=== PATIENT | female | born 1980 | race Caucasian/White ===

== ENCOUNTER 2017-11-02 23:54 | Emergency (ER) | payer OTHER ==
[2017-11-03 00:23] LABS: ADD MAN DIFF? NO
[2017-11-03 00:24] LABS: BASOPHILS % 0.2 % (0.0-2.0); EOSINOPHILS # 0.2 10^3/ul (0.0-0.5); EOSINOPHILS % 1.1 % (0.0-7.0); HEMATOCRIT 33.6 % (37.0-47.0); HEMOGLOBIN 9.9 g/dl (12.0-16.0); LYMPHOCYTES # 3.6 10^3/ul (0.8-2.9); LYMPHOCYTES % 17.8 % (15.0-51.0); MEAN CORPUSCULAR HEMOGLOBIN 19.9 pg (29.0-33.0); MEAN CORPUSCULAR HGB CONC 29.5 g/dl (32.0-37.0); MEAN CORPUSCULAR VOLUME 67.5 fl (82.0-101.0); MEAN PLATELET VOLUME 9.3 fl (7.4-10.4); MONOCYTE # 1.1 10^3/ul (0.3-0.9); MONOCYTES % 5.2 % (0.0-11.0); NEUTROPHIL # 15.3 10^3/ul (1.6-7.5); NEUTROPHILS % 74.7 % (39.0-77.0); PLATELET COUNT 572 10^3/UL (140-415); RED BLOOD COUNT 4.98 10^6/ul (4.20-5.40); RED CELL DISTRIBUTION WIDTH 18.5 % (11.5-14.5)
[2017-11-03 00:24] LABS: WHITE BLOOD COUNT 20.4 10^3/ul (4.8-10.8)
[2017-11-03] MEDS: FENTAnyl 50 MCG/ML VIAL IV (00:29)
[2017-11-03 01:01] LABS: ALANINE AMINOTRANSFERASE 24 IU/L (13-69); ALBUMIN 4.1 g/dl (3.3-4.9); ALKALINE PHOSPHATASE 90 IU/L (42-121); ANION GAP 19 (8-16); ASPARTATE AMINO TRANSFERASE 24 IU/L (15-46); BLOOD UREA NITROGEN 10 mg/dl (7-20); CALCIUM 9.3 mg/dl (8.4-10.2); CARBON DIOXIDE 25 mmol/L (21-31); CHLORIDE 102 mmol/L (97-110); GLUCOSE 129 mg/dl (70-220); POTASSIUM 4.5 mmol/L (3.5-5.1); SODIUM 141 mmol/L (135-144); TOTAL PROTEIN 7.7 g/dl (6.1-8.1)
[2017-11-03] MEDS: IOHEXOL 300MG/ML 150 ML BTL (01:35)
[2017-11-03] MEDS: SOD CHLORIDE 0.9% 100 ML (01:35)
[2017-11-03] MEDS: SOD CHLORIDE 0.9% 1,000 ML IV (04:42)
== END 2017-11-03 06:15 | disposition home or self-care (01) ==
LOC: E/R 23:54
DX: R10.30 Lower abdominal pain, unspecified (principal); R07.9 Chest pain, unspecified; D72.823 Leukemoid reaction; D50.9 Iron deficiency anemia, unspecified; D47.3 Essential (hemorrhagic) thrombocythemia; R00.0 Tachycardia, unspecified
CPT/HCPCS: 71045; 74177; 80048; 80076; 85025; 93005; 96374; 99285-25